=== PATIENT | male | born 1970 | race Caucasian/White ===

== ENCOUNTER 2016-08-13 12:55 | Emergency (ER) | payer BC, OTHER ==
[2016-08-13] MEDS ORDERED: ACETAMINOPHEN 325 MG TABLET PO ONE (13:40)
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
[2016-08-13 15:28] VITALS: BP 127/94
== END 2016-08-13 15:28 | disposition home or self-care (01) ==
LOC: ER 12:55
DX: S16.1XXA Strain of muscle, fascia and tendon at neck level, initial encounter (principal); V59.40XA Driver of pick-up truck or van injured in collision with unspecified motor vehicles in traffic accident, initial encounter; M25.512 Pain in left shoulder; M54.2 Cervicalgia
CPT/HCPCS: 72040; 99284

== ENCOUNTER 2016-11-24 14:56 | Emergency (ER) | payer BC, OTHER ==
[2016-11-24] MEDS ORDERED: CEPHALEXIN 500 MG CAPSULE PO ONE (15:30)
[2016-11-24] MEDS ORDERED: DIPH/PERTUSS(ACELL)/TETANUS VAC/PF 0.5 ML SYR (>=10YO) IM ONE (15:30)
--- NOTE | 2016-11-24 15:42 | ER Document Report ---
ED Wound - General Chief Complaint: Laceration Stated Complaint: LACERATION LEFT MIDDLE FINGER Information source: Patient TRAVEL OUTSIDE OF THE [place] IN LAST 30 DAYS: No - HPI Patient complains to provider of: Laceration Occurred: Just prior to arrival Notes: Patient arrives with complaints of laceration to the tip of the left middle finger. He states that he was cutting trim with a miter saw when his left fingertip accidentally touched the side of the saw blade causing a laceration. Bleeding is controlled. He is unsure when his last tetanus was. He denies any numbness, tingling, weakness. No blood thinners. No fevers or drainage. He denies any other injuries. He has full range of motion of the finger. He has no other complaints at this time. - Related Data Allergies/Adverse Reactions: No Known Allergies Allergy (Verified 11/24/16 15:06) Past Medical History - Social History Smoking Status: Never Smoker Chew tobacco use (# tins/day): No Frequency of alcohol use: Occasional Drug Abuse: None Family History: Reviewed & Not Pertinent Patient has suicidal ideation: No Patient has homicidal ideation: No - Past Medical History Cardiac Medical History: Denies: Hx Congestive Heart Failure, Hx Coronary Artery Disease, Hx Heart Attack, Hx Hypertension, Hx Pulmonary Embolism Pulmonary Medical History: Denies: Hx Asthma, Hx Bronchitis, Hx COPD, Hx Pneumonia Neurological Medical History: Denies: Hx Cerebrovascular Accident, Hx Seizures Endocrine Medical History: Denies: Hx Diabetes Mellitus Type 2 Renal/ Medical History: Denies: Hx Peritoneal Dialysis GI Medical History: Reports: Hx Gastritis, Hx Gastroesophageal Reflux Disease. Denies: Hx Cirrhosis, Hx Diverticulitis, Hx Hiatal Hernia, Hx Ulcer Musculoskeltal Medical History: Denies Hx Arthritis Psychiatric Medical History: Reports: Hx Depression Past Surgical History: Reports: Hx Cholecystectomy - Immunizations Hx Diphtheria, Pertussis, Tetanus Vaccination: Yes - in - 22 years ago Review of Systems - Review of Systems -: Yes All other systems reviewed and negative Physical Exam - Notes Notes: GENERAL: alert, cooperative, nontoxic, no distress. HEAD: normocephalic, atraumatic EYES: conjunctiva pink without discharge, no external redness or swelling. EARS: no external swelling, no external redness NOSE: atraumatic, no external swelling MOUTH/THROAT: mucous membranes moist and pink NECK: soft, supple, full range of motion, no meningismus. CHEST: no distress, lungs clear and equal throughout. No wheezing, rales, rhonchi. CARDIAC: regular rate and rhythm, no murmur, normal capillary refill, normal pulses. BACK: full range of motion, no CVA tenderness. EXTREMITIES: The patient is noted to have an avulsion type laceration to the thumb aspect of the left middle fingertip. A small amount of nail laceration noted as well. There is no active bleeding. There is tissue and skin missing from this area. He has normal cap refill and sensation distally. He has full flexion and extension of the finger with no sign of flexor or extensor tendon laceration. No obvious foreign body identified. NEURO: alert and oriented 3, no focal deficits, full range of motion of all extremities. PYSCH: appropriate mood, affect. Patient is cooperative. SKIN: pink, warm, dry, no rash. Course - Vital Signs Vital signs: Patient is nontoxic. Stable vitals. The patient asked that we lacerated the tip of his left middle finger on a saw. He has an avulsion type injury to this finger tip with partial nail injury. There is no active bleeding. There is no laceration that needs suture repaired. This will need to heal over time. X- ray shows no fracture or foreign body. His tetanus was updated. He was given a dose of Keflex here in the ED. He'll be discharged home with Keflex. He declined any pain medication to go home with. Follow up with or so in the next week to ensure that this is healing appropriately. Follow-up sooner for increased pain, fever, redness, drainage, any further concerns. The patient is noted to have elevated blood pressure during today's emergency department visit. The patient was informed of this finding. The patient was instructed that this may be related to pre-hypertension and requires further evaluation with a primary care provider. The patient has no hypertensive symptoms at this time. The patient's emergency department workup and current diagnosis were explained to the patient and or family. Follow-up instructions were provided. Medications if prescribed were discussed. Instructions for when to return to the emergency department including specific worrisome symptoms were discussed with the patient and/or family. - Diagnostic Test Radiology reviewed: Image reviewed, Reports reviewed - Soft tissue injury, no foreign body or fracture. Discharge - Discharge Clinical Impression: Laceration of finger Qualifiers: Encounter type: initial encounter Qualified Code(s): S61.219A - Laceration without foreign body of unspecified finger without damage to nail, initial encounter Condition: Stable Disposition: HOME, SELF-CARE Instructions: Antibiotic Ointment Protection ([facility]), Laceration Care ([facility]), Tetanus Immunization Given ([facility]) Additional Instructions: Keep wound clean and dry. Clean wound twice a day with soap and water. Take medications as prescribed. Follow-up with orthopedic next week to reevaluate her wound. Follow-up sooner for increased pain, fever, redness, drainage, any further concerns. Your blood pressure was elevated during today's visit. Have this rechecked with your doctor. Prescriptions: Cephalexin [Cephalexin 500 MG Capsule] 1 cap PO QID #28 capsule Referrals: RAIZA POP MD [Primary Care Provider] - Follow up as needed JUAN ANDERSON MD [ACTIVE STAFF] - Follow up in 1 week
[2016-11-24 17:00] VITALS: BP 117/66
== END 2016-11-24 17:00 | disposition home or self-care (01) ==
LOC: ER 14:56
DX: S61.213A Laceration without foreign body of left middle finger without damage to nail, initial encounter (principal); W45.8XXA Other foreign body or object entering through skin, initial encounter; W29.8XXA Contact with other powered hand tools and household machinery, initial encounter; R03.0 Elevated blood-pressure reading, without diagnosis of hypertension
CPT/HCPCS: 90471; 90715; 99283